=== PATIENT | female | born 1955 | race Caucasian/White ===

== ENCOUNTER → 2016-11-01 | Outpatient (CLI) | payer BC | END | disposition home or self-care (01) | LOC: CFH 08:29 | PROVIDERS: ATTEND Internal Medicine | DX: Z13.820 Encounter for screening for osteoporosis (principal); M85.88 Other specified disorders of bone density and structure, other site; R79.89 Other specified abnormal findings of blood chemistry; N95.8 Other specified menopausal and perimenopausal disorders | CPT/HCPCS: 76705; 77080 ==

== ENCOUNTER → 2016-12-24 | Outpatient (CLI) | payer BC | END | disposition home or self-care (01) | LOC: CFH 11:51 | PROVIDERS: ATTEND Family Medicine | DX: J32.0 Chronic maxillary sinusitis (principal); R59.0 Localized enlarged lymph nodes; M79.9 Soft tissue disorder, unspecified | CPT/HCPCS: 70486 ==

== ENCOUNTER → 2018-06-30 | Outpatient (CLI) | payer BC | END | disposition home or self-care (01) | LOC: CFH 10:43 | PROVIDERS: ATTEND Internal Medicine | DX: Z12.31 Encounter for screening mammogram for malignant neoplasm of breast (principal); Z80.3 Family history of malignant neoplasm of breast | CPT/HCPCS: 77067 ==